=== PATIENT | female | born 1985 | race Caucasian/White ===

== ENCOUNTER 2018-07-08 20:50 | Inpatient (IN) | payer BC ==
[~2018-07-08] VITALS: Ht 160 cm; Wt 71.2 kg
[~2018-07-08 20:50] MED LIST: AMOX-559 PO; CALC-515 PO; DIPH-911 PO; DOCU100C49 PO; IBUP800T37 PO; ONDA4TAB97 PO; OXYC-373 PO; PREN-172 PO
[2018-07-08] MEDS ORDERED: FAMOTIDINE(*) 20MG/50ML PREMIX 50 ML IVPB PRN ×2 (20:54→21:30)
[2018-07-08] MEDS ORDERED: ONDANSETRON 4 MG/2 ML VIAL IVP PRN (20:55)
[2018-07-08] MEDS ORDERED: LIDOCAINE 1% LOCAL 300 MG/30ML INJ PRN (20:55)
[2018-07-08] MEDS ORDERED: DINOPROSTONE 10 MG INSERT PV ONE (20:55)
[2018-07-08] MEDS ORDERED: cefOXitin/DEX(*) 2GM/50ML PREM 50 ML IVPB PRN (20:55)
[2018-07-08] MEDS ORDERED: METOCLOPRAMIDE 10 MG/2 ML SDV IVP PRN (20:55)
[2018-07-08] MEDS ORDERED: CALCIUM CARBONATE 500 MG CHEW PO PRN (20:55)
[2018-07-08] MEDS ORDERED: ACETAMINOPHEN 500 MG TAB PO PRN (20:55)
[2018-07-08] MEDS ORDERED: TERBUTALINE SULF 1 MG/ML VIAL SUBQ PRN (20:55)
[2018-07-08] MEDS ORDERED: MISOPROSTOL 25 MCG CAP PV PRN (20:55)
[2018-07-08] MEDS ORDERED: LIDOCAINE/SOD BICARB 8.4% SYR SC PRN (20:55)
[2018-07-08] MEDS ORDERED: fentaNYL CITR 100 MCG/2 ML AMP IVP PRN (20:55)
[2018-07-08] MEDS ORDERED: ZOLPIDEM TARTRATE 5 MG TAB PO ONE (21:30)
[2018-07-08 21:55] LABS: PLATELET COUNT, AUTOMATED 208 K/uL (150-450)
[2018-07-08 22:15] VITALS: BP 140/90; Ht 160 cm; Wt 71.2 kg
[2018-07-08] MEDS ORDERED: OXYTOCIN 30 UNIT/D5LR 500 ML 500 ML ONE (22:36)
[2018-07-08] MEDS ORDERED: OXYTOCIN 30 UNIT/D5LR 500 ML 500 ML IV PRN (22:57)
[2018-07-09] MEDS: LR(*) 1000 ML BAG 1,000 ML IV PRN ×2 (03:00→05:19)
[2018-07-09] MEDS ORDERED: OXYTOCIN 30 UNIT/D5LR 500 ML 500 ML IV PRN (03:00)
[2018-07-09] MEDS ORDERED: BUPIVACAINE 0.5% INJ 30ML VIAL EPI PRN (03:45)
[2018-07-09] MEDS ORDERED: fentaNYL CITR 100 MCG/2 ML AMP IT PRN (03:45)
[2018-07-09] MEDS ORDERED: LIDO/EPI 2% MPF 1:200,000 20ML EPI PRN (03:45)
[2018-07-09] MEDS ORDERED: ePHEDrine 25 MG/5 ML DISP.SYR IVP PRN (03:45)
[2018-07-09] MEDS ORDERED: FENTANYL/ROPIVACAINE 100 ML BAG EPI PRN (03:45)
[2018-07-09] MEDS ORDERED: LIDOCAINE/PF 2% 200MG/10ML AMP 200 MG/10 ML AMPUL EPI PRN (03:45)
[2018-07-09] MEDS ORDERED: BUPIVACAINE 0.25% MPF INJ EPI PRN (03:45)
--- NOTE | 2018-07-09 05:29 | Anesthesia OB Pre-Anes Eval ---
History of Present Illness Anesthesia Start Date: Jul 09, 2018 Anesthesia Start Time: 04:40 OB Anesthesia Diagnosis: induction - elective EDC: Jul 10, 2018 : 4 Para: 2 Pain Ratin Result Diagram: 07/08/18214207/08/182142 Height (Inches): 63.00 Weight (Pounds): 157 Past Medical History Medical History: no pertinent history Surgical History: other (Clavicle, knee's, uterine repair following vag delivery) Previous Anesthesia: general, epidural Attended Childbirth Classes?: No Hx Anesthesia Reactions: No Hx Family Anesthesia Reaction: No Home Meds Reported Medications Vit No.78/Iron/Fa (PRENATABS FA TABLET) 1 Each Tablet, 1 EACH PO DAILY 02/28/14 Discontinued Reported Medications Docusate Sodium (STOOL SOFTENER) 100 Mg Capsule, 100 MG PO BID PRN for CONSTIPATION, CAPSULE 05/29/14 Calcium Carbonate (TUMS) 200 Mg Tab.chew, 200 MG PO PRN, TAB.CHEW 05/29/14 Ondansetron Hcl (ZOFRAN) 4 Mg Tablet, 4 MG PO Q12H PRN for NAUSEA 02/28/14 Discontinued Scripts Amoxicillin/Pot Clav 875-125 Mg Tab (AUGMENTIN 875-125 TABLET) 1 Each Tablet, 1 TAB PO Q12H, #14 TAB TAKE ONE TABLET BY MOUTH EVERY 12 HOURS Prov:JERONIMO WAYNE MD 06/25/14 Oxycodone Hcl/Acetaminophen (OXYCODONE-ACETAMINOPHEN 5-325) 1 Each Tablet, 1-2 EACH PO Q4H PRN for PAIN/HEADACHE, #30 TAB Prov:JERONIMO WAYNE MD 06/25/14 Ibuprofen (IBUPROFEN) 800 Mg Tablet, 1 TAB PO Q8H, #30 TAB Prov:JERONIMO WAYNE MD 06/25/14 Allergies: Coded Allergies: No Known Drug Allergies (Unverified , 02/27/14) Anesthesia OB ROS Neurological: No migraines/headaches, No seizures, No neuropathy, No other ENT: Denies Tooth caps, Denies Loose teeth, Denies Chipped teeth, Denies Dentures, Denies Bridges, Denies Retainers, Denies Veneers, Denies Implants, Denies Tongue ring, Denies Other Pulmonary: No asthma, No smoker (pks/day/yrs), No other Airway Class: ll Cardiovascular ROS: No edema, No arrhythmia, No other GI ROS: clear liquids Last Solids Date: Jul 08, 2018 Last Solids Time: 17:00 ROS: No Herpes, No STD(s), No Liver Disease, No Renal Disease, No Other Endocrine ROS: No diabetes, No gestational diabetes, No thyroid disorder, No other Musculoskeletal ROS: No low back pain, No low back injury, No scoliosis, No other ASA Classification: 2 Assessment and Plan Anesthesia Plan: LEB Anesthesia Stop Day: Jul 09, 2018 Anesthesia Stop Time: 10:30 Epidural Catheter Removal: Removed Catheter Intact, Yes, Removed by: (Abel Murphy CRNA) Removal Date: Jul 09, 2018 Removal Time: 10:30 ABEL MURPHY CRNA Jul 09, 2018 05:29
--- NOTE | 2018-07-09 05:32 | Procedure Note ---
Anesthetic Placement Note Anesthesia Plan: LEB Permit for Anesthesia Signed: Yes Anesthesia Technique: Patient Sitting Anesthesia Prep: Chlorhexidine Interspace: L 3-4 Local Anesthetic: 1% Lidocaine, 25 Gauge Needle Amount Local - cc's: 1.5 Anesthesia Needle: 17g Touhy/Schliff Anesthesia Attempts: 1 Loss of Resistance: Normal Saline Depth of SAVANNAH (cm): 10 Epidural Needle Placement: No CSF, No Blood, No Parasthesia Cerebral Spinal Fluid: No Catheter Insertion (cm): 10 Catheter Type: Aguilar - Spring Wound Epidural Dressing: Tegaderm, Tape Anesthesia Tray: Lot Number ([id number]), Expiration Date (11/24/2019), Reference Number ([id number]) Anesthesia Medications: Epidural Test Dose: 1.5 Lido/Epi (1:200,000), Dose - mL (4), Time (0457), Negative Epidural Loading Dose: 0.2% Ropivicaine, With Fentanyl 2mcg/ml, Dose - ml (2), Time (0510) Epidural Infusion: 0.2% Ropivicaine, With Fentanyl 2mcg/ml, Start Time: (0510) Epidural Pump Setting: Bolus Dose - mL (4), Lockout - Minutes (20), Maintenance Rate - mL/hr (8), Maximum per Hour - mL (16) Complications: None FANNY MURPHY CRNA Jul 09, 2018 05:32
--- NOTE | 2018-07-09 08:15 | History & Physical ---
History of Present Illness Age of Patient: 33 : 4 Para or TPAL: 2 EDC per LMP: Jul 10, 2018 Estimated Gestational Age: 39.6 Chief Complaint Labor induction History of Present Illness Presents for scheduled labor induction. Ana Paula's first delivery was at 28 weeks with incompetent cervix. 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 She was taken to the OR and had this repaired. This was managed again with Shirodkar cerclage and weekly Risa injections. Cerclage removed on 06/21/18 and now presenting for IOL. Her cervix is mildly deformed from all of this with the os palpable to the left of the cervix. otherwise uncomplicated. Past Medical, Surgical, Family and Obstetric Histories reviewed. Please see ACOG chart. History Allergies: Coded Allergies: No Known Drug Allergies (Unverified , 02/27/14) Social History: In a monogamous relationship, denies T/E/D Family History: FH: colon cancer FATHER, Onset:Unknown FH: hypertension FATHER, Onset:Unknown FH: stroke Paternal Grandmother, Onset:Unknown Med Rec Home Meds Reported Medications Vit No.78/Iron/Fa (PRENATABS FA TABLET) 1 Each Tablet, 1 EACH PO DAILY 02/28/14 Discontinued Reported Medications Docusate Sodium (STOOL SOFTENER) 100 Mg Capsule, 100 MG PO BID PRN for CONSTIPATION, CAPSULE 05/29/14 Calcium Carbonate (TUMS) 200 Mg Tab.chew, 200 MG PO PRN, TAB.CHEW 05/29/14 Ondansetron Hcl (ZOFRAN) 4 Mg Tablet, 4 MG PO Q12H PRN for NAUSEA 02/28/14 Discontinued Scripts Amoxicillin/Pot Clav 875-125 Mg Tab (AUGMENTIN 875-125 TABLET) 1 Each Tablet, 1 TAB PO Q12H, #14 TAB TAKE ONE TABLET BY MOUTH EVERY 12 HOURS Prov:JERONIMO WAYNE MD 06/25/14 Oxycodone Hcl/Acetaminophen (OXYCODONE-ACETAMINOPHEN 5-325) 1 Each Tablet, 1-2 EACH PO Q4H PRN for PAIN/HEADACHE, #30 TAB Prov:JERONIMO WAYNE MD 06/25/14 Ibuprofen (IBUPROFEN) 800 Mg Tablet, 1 TAB PO Q8H, #30 TAB Prov:JERONIMO WAYNE MD 06/25/14 Exam General Exam Vital Signs Vital Signs Date Time Temp Pulse Resp B/P (MAP) Pulse Ox O2 Delivery O2 Flow Rate FiO2 07/08/18 22:15 98.2 94 16 140/90 (107) 95 Room Air General Apperance: Alert/Awake/No Acute Distress Neuro: No Gross deficits Eyes: Normal Extraocular Movement & Vison Cardiovascular: Regular Rate and Rhythm Respiratory: No Respiratory Distress Abdomen: Soft, Non-Tender, Non-Distended Integumentary: Skin Intact without Lesions or Rash Psychological: Alert & Oriented X3, Appropriate Mood & Affect Cervical Dialation: 3 Presentation: Vertex Fetus Heart Tone Variabilty: Moderate FHT Category: I Medical Decision Making Data Points Result Diagram: 07/08/18214207/08/182142 VTE Prophylasis: Adult Deep Vein Thrombosis/Pulmonary: No Pharmacological Contraindicati: Pt at Low Risk for VTE Mechanical Contraindications: Pt at Low Risk for VTE 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
--- NOTE | 2018-07-09 08:24 | Labor Progress Note ---
Labor Subjective Progress Notes Subjective Doing well. Pain well controlled with epidural in place. Having dark bloody show with exams. FHTs category 1. 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 (2) History of delivery, currently in third trimester Status: Acute (3) Cervical abnormality in , delivered Status: Acute ROGELIO ERAZO MD Jul 09, 2018 08:24
--- NOTE | 2018-07-09 10:31 | OB Delivery Note ---
Delivery Note Vaginal Delivery Type: Spont. Vaginal Delivery Delivery Date: Jul 09, 2018 Delivery Time: 10:12 Estimated Gestational Age(wks): 39.6 Delivery Anesthesia: Epidural Sex: Female Infant Weight (gms): 2790 Apgars: 1 Minute (8), 5 Minute (10) Estimated Blood Loss: 300 Notes: Progressed through labor well from 3 cm on admission to 4 cm by AM and 4.5 cm by 0820. Completely dilated by 0942 and begin pushing. Prolonged deceleration when went to complete but quickly resolved. Mild shoulder dystocia noted with d elivery of head in SHAMIR position. Legs positioned in Juan position and suprapubic pressure applied. Delivery of the anterior shoulder then occurred with a maternal push and little manipulation of the head. The remainder of baby delivered without complication. Mouth and nose suctioned and baby wiped off. Good initial apgars. Placenta delivered spontaneous and intact. Cervix inspected and large anterior lip noted with defect toward the left side. Minimal bleeding noted. No complications. Air Box Tester in Attendence: No Copies to: ROGELIO ERAZO MD ; ROGELIO ERAZO MD Jul 09, 2018 10:30
[2018-07-09] MEDS ORDERED: HYDROCORTISONE 2.5% CR 30GM TB PR PRN (10:35)
[2018-07-09] MEDS ORDERED: MAGNESIUM HYDROXIDE* 30ML UDCP PO PRN (10:35)
[2018-07-09] MEDS ORDERED: LANOLIN OINT 7 GM TUBE TP PRN (10:35)
[2018-07-09] MEDS ORDERED: GLYCERIN/WITCH HAZEL LEAF 1 PK TP PRN (10:35)
[2018-07-09] MEDS ORDERED: BENZOCAINE 20% 60 ML BTL TP PRN (10:35)
[2018-07-09] MEDS ORDERED: ACETAMINOPHEN 325 MG TAB PO PRN (10:35)
[2018-07-09] MEDS ORDERED: ONDANSETRON 4 MG/2 ML VIAL IVP ONE (11:35)
[2018-07-09] MEDS ORDERED: IBUPROFEN 800 MG TAB PO SCH (12:00)
[2018-07-09 15:16] VITALS: BP 118/59
[2018-07-09] MEDS ORDERED: ONDANSETRON 4 MG/2 ML VIAL IVP PRN (18:00)
[2018-07-09] MEDS: APAP/HYDROCODONE 325/5 TAB PO PRN ×2 (18:42→19:20)
[2018-07-09 20:50] VITALS: BP 126/66
[2018-07-09] MEDS: DOCUSATE CALCIUM 240 MG CAP PO SCH (20:57)
[2018-07-09] MEDS: IBUPROFEN 800 MG TAB PO SCH (20:57)
[2018-07-10 00:45] VITALS: BP 113/74
[2018-07-10] MEDS: APAP/HYDROCODONE 325/5 TAB PO PRN (04:20)
[2018-07-10 04:25] VITALS: BP 106/68
[2018-07-10] MEDS: IBUPROFEN 800 MG TAB PO SCH (06:19)
[2018-07-10 07:41] VITALS: BP 114/67
[2018-07-10] MEDS: DOCUSATE CALCIUM 240 MG CAP PO SCH (08:17)
--- NOTE | 2018-07-10 08:24 | OB/GYN Progress Note ---
OB Subjective Progress Notes Subjective Doing well. Pain well controlled and bleeding light. No problems. GI: NEG Nausea : Voiding Well Pain: Mild OB Objective Physical Exam Vital Signs Date Time Temp Pulse Resp B/P (MAP) Pulse Ox O2 Delivery O2 Flow Rate FiO2 07/10/18 07:41 97.7 75 14 114/67 (83) 07/09/18 23:20 Room Air 07/08/18 22:15 95 Intake and Output 07/10/18 06:59 Intake Total 2500 ml Balance 2500 ml Intake Oral 1000 ml IV Total 1500 ml # Voids 4 General Appearance: Alert/Awake/No Acute Distress Neurological: No Gross deficits Eyes: Normal Extraocular Movement & Vison Cardiovascular: Normal Rhythm & Peripheral Pulses Respiratory: No Respiratory Distress, Clear to Auscultation Abdomen: Soft, Non-Tender, Non-Distended, Fundus Firm, Non-Tender Integumentary: Skin Intact without Lesions or Rash Psychological: Alert & Oriented X3, Appropriate Mood & Affect Result Diagram: 07/10/18 0626 07/08/18 2143 Assessment and Plan 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
[2018-07-10] MEDS ORDERED: LOR5/325 PO (08:25)
[2018-07-10] MEDS ORDERED: IBUP800T37 PO (08:25)
--- NOTE | 2018-07-10 08:28 | OB/GYN Discharge Summary ---
Discharge Summary Reason for Hosp/Final Diag: (1) 39 weeks gestation of (2) History of delivery, currently in third trimester Status: Acute (3) Cervical abnormality in , delivered Status: Acute Lates Vital Signs Vital Signs Date Time Temp Pulse Resp B/P (MAP) Pulse Ox O2 Delivery O2 Flow Rate FiO2 07/10/18 07:41 97.7 75 14 114/67 (83) 07/09/18 23:20 Room Air 07/08/18 22:15 95 Weight (Pounds): 157 Result Diagram: 07/10/18 0626 07/08/18 5959 Condition: Improved Discharge: Home, Self Jail Meds Active Scripts Hydrocodone Bit/Acetaminophen (HYDROCODON-ACETAMINOPHEN 5-325) 1 Each Tablet, 1- 2 EACH PO Q4H PRN for PAIN, #10 TAB 0 Refills Prov:ROGELIO JACOBS MD 07/10/18 Reported Medications Vit No.78/Iron/Fa (PRENATABS FA TABLET) 1 Each Tablet, 1 EACH PO DAILY 02/28/14 Discontinued Reported Medications Docusate Sodium (STOOL SOFTENER) 100 Mg Capsule, 100 MG PO BID PRN for CONSTIPATION, CAPSULE 05/29/14 Calcium Carbonate (TUMS) 200 Mg Tab.chew, 200 MG PO PRN, TAB.CHEW 05/29/14 Ondansetron Hcl (ZOFRAN) 4 Mg Tablet, 4 MG PO Q12H PRN for NAUSEA 02/28/14 Discontinued Scripts Amoxicillin/Pot Clav 875-125 Mg Tab (AUGMENTIN 875-125 TABLET) 1 Each Tablet, 1 TAB PO Q12H, #14 TAB TAKE ONE TABLET BY MOUTH EVERY 12 HOURS Prov:JERONIMO WAYNE MD 06/25/14 Oxycodone Hcl/Acetaminophen (OXYCODONE-ACETAMINOPHEN 5-325) 1 Each Tablet, 1-2 EACH PO Q4H PRN for PAIN/HEADACHE, #30 TAB Prov:JERONIMO WAYNE MD 06/25/14 Ibuprofen (IBUPROFEN) 800 Mg Tablet, 1 TAB PO Q8H, #30 TAB Prov:JERONIMO WAYNE MD 06/25/14 Follow up Referrals: 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 Jacobs [phone] Follow up in: 6 wks PP or PO Discharge Diet: As Tolerates Discharge Activity: As Tolerates, No Heavy Lifting x 6 wks, No Heavy Lifting > 10lb, Pelvic Rest Copies to: ROGELIO JACOBS MD ; ROGELIO JACOBS MD Jul 10, 2018 08:28
[2018-07-10 11:01] VITALS: BP 101/57
[2018-07-11] MEDS ORDERED: INFLUENZA VIRUS VAC 0.5ML SYR IM ONLY ONE (09:00)
[2018-07-11] MEDS ORDERED: DIPHTH/TETANUS/ACEL. PERTUSSIS IM ONLY ONE (09:00)
[2018-07-11] MEDS ORDERED: MEASLES,MUMP,RUBELLA VAC 0.5ML SUBQ ONE (09:00)
== END 2018-07-10 13:09 | disposition home or self-care (01) | DRG 807 ==
LOC: OB 20:50
PROVIDERS: ADMIT Obstetrics & Gynecology; ATTEND Obstetrics & Gynecology
PROC: 10E0XZZ Delivery of Products of Conception, External Approach (ICD-10-PCS; principal; 2018-07-09)
DX: O34.43 Maternal care for other abnormalities of cervix, third trimester (principal); Z37.0 Single live birth; O66.0 Obstructed labor due to shoulder dystocia; Z3A.39 39 weeks gestation of pregnancy
CPT/HCPCS: 36415; 82040; 82247; 82310; 82374; 82435; 82565; 82570; 82947; 83615; 84075; 84132; 84155; 84156; 84295; 84450; 84460; 84520; 84550; 85025; 85027; 86703; 86850; 86900; 86901; J2405; J2590; J7120